=== PATIENT | female | born 1965 | race Caucasian/White ===

== ENCOUNTER 2019-06-14 09:55 | Outpatient (CLI) | payer OTHER, SELFPAY ==
[2019-06-14 11:26] LABS: Anion Gap 11.8 mmol/L (3-11); BUN 11 mg/dL (7-18); CO2 25.2 mmol/L (21.0-32.0); CREATININE 0.73 mg/dL (0.55-1.02); Calcium 9.1 mg/dL (8.5-10.1); Chloride 98 mmol/L (98-107); Cholesterol 226 mg/dL (50-200); Glucose 90 mg/dL (70-100); HDL Cholesterol 58 mg/dL (40-60); Potassium 4.3 mmol/L (3.5-5.1); Sodium 135 mmol/L (136-145); Triglyceride 506 mg/dL (30-150)
[2019-06-14 11:48] LABS: LDL CHOLESTEROL 90 mg/dL (<100)
== END 2019-06-14 10:15 ==
PROVIDERS: PCP Family Medicine; Visit Provider Family Medicine
DX: Z00.00 Encounter for general adult medical examination without abnormal findings (principal); Z13.220 Encounter for screening for lipoid disorders; Z13.228 Encounter for screening for other metabolic disorders
CPT/HCPCS: 36415; 80048; 80061; 83721

== ENCOUNTER 2019-06-21 15:45 | Outpatient (REF) | payer OTHER, SELFPAY ==
--- NOTE | 2019-06-21 15:45 | PAPFT_PTH ---
PATIENT: Isabel Adhikari LOC: [facility] U#:[id number] AGE/SX: 53/F ROOM: RE06/21/[address]: Arlin Chaney V : 1965 BED: DIS: 06/21/2019 SPEC #: [id number] RECD: 06/22/19 12:48 STATUS: NASH REQ #: [id number] RONY: 06/21/19 15:[address]: Arlin Chaney V DEPT: [facility] Cytology RECD BY: Rosalina Sahni Tissues: 1 - CX/ENDOCX FOR PAP SMEARS Procedures: PAP THIN PREP/[facility] Screening HPV DNA PROBE Comments: [id number]
== END 2019-06-21 16:05 ==
LOC: NCHCN 15:45
PROVIDERS: PCP Family Medicine; Visit Provider Family Medicine
DX: Z12.4 Encounter for screening for malignant neoplasm of cervix (principal); Z11.51 Encounter for screening for human papillomavirus (HPV); Z01.419 Encounter for gynecological examination (general) (routine) without abnormal findings
CPT/HCPCS: 88142; 87624

== ENCOUNTER 2021-08-05 00:51 | Outpatient (CLI) | payer OTHER, SELFPAY ==
[2021-08-05 09:46] LABS: Anion Gap 12.6 mmol/L (3-11); BUN 9 mg/dL (7-18); CO2 25.4 mmol/L (21.0-32.0); CREATININE 0.9 mg/dL (0.55-1.02); Calcium 9.4 mg/dL (8.5-10.1); Chloride 100 mmol/L (98-107); Glucose 106 mg/dL (74-106); Potassium 3.9 mmol/L (3.5-5.1); Sodium 138 mmol/L (136-145)
[2021-08-05 09:49] LABS: Triglyceride 1063 mg/dL (<150)
[2021-08-05 10:01] LABS: LDL CHOLESTEROL 67 mg/dL (<100)
== END 2021-08-05 00:52 | disposition home or self-care (01) ==
PROVIDERS: PCP Family Medicine; Visit Provider Family Medicine
DX: Z00.00 Encounter for general adult medical examination without abnormal findings (principal); I10 Essential (primary) hypertension
CPT/HCPCS: 36415; 80048; 83721; 84478

== ENCOUNTER 2022-08-18 02:44 | Outpatient (CLI) | payer OTHER, SELFPAY ==
[2022-08-18 07:34] LABS: Hemoglobin A1C 5.5 % (<5.7)
[2022-08-18 08:32] LABS: ALT 35 U/L (14-59); AST 26 U/L (15-37); Albumin 3.6 g/dL (3.4-5.0); Alkaline Phosphatase 66 U/L (46-116); Anion Gap 9.6 mmol/L (3-11); BUN 6 mg/dL (7-18); Bilirubin, Total 0.5 mg/dL (0.2-1.0); CO2 27.4 mmol/L (21.0-32.0); CREATININE 0.7 mg/dL (0.55-1.02); Calcium 9.3 mg/dL (8.5-10.1); Calculated LDL 72 mg/dL (<100); Chloride 99 mmol/L (98-107); Cholesterol 196 mg/dL (<200); Estimated GFR 100.19 (mL/min/1.73m2); Glucose 87 mg/dL (74-106); HDL Cholesterol 60 mg/dL (40-60); Potassium 4.1 mmol/L (3.5-5.1); Sodium 136 mmol/L (136-145); Total Protein 7.2 g/dL (6.4-8.2); Triglyceride 323 mg/dL (<150)
[2022-08-18 08:44] LABS: Lipase 236 U/L (73-393)
== END 2022-08-18 02:45 | disposition home or self-care (01) ==
PROVIDERS: PCP Family Medicine; Visit Provider Family Medicine
DX: E78.1 Pure hyperglyceridemia (principal); I10 Essential (primary) hypertension; Z00.00 Encounter for general adult medical examination without abnormal findings; Z13.1 Encounter for screening for diabetes mellitus
CPT/HCPCS: 36415; 80053; 80061; 83690; 83036

== ENCOUNTER 2023-09-15 02:49 | Outpatient (CLI) | payer OTHER, SELFPAY ==
[2023-09-15 10:41] LABS: ALT 48 U/L (14-59); AST 42 U/L (15-37); Albumin 4.3 g/dL (3.4-5.0); Alkaline Phosphatase 72 U/L (46-116); Anion Gap 13.3 mmol/L (3-11); BUN 6 mg/dL (7-18); Bilirubin, Total 0.6 mg/dL (0.2-1.0); CO2 22.7 mmol/L (21.0-32.0); CREATININE 0.7 mg/dL (0.55-1.02); Calcium 10.1 mg/dL (8.5-10.1); Chloride 99 mmol/L (98-107); Estimated GFR 99.57 (mL/min/1.73m2); Glucose 107 mg/dL (74-106); Lipase 65 U/L (16-77); Potassium 4.2 mmol/L (3.5-5.1); Sodium 135 mmol/L (136-145)
[2023-09-15 11:00] LABS: Triglyceride 434 mg/dL (<150)
[2023-09-15 11:20] LABS: LDL CHOLESTEROL 89 mg/dL (<100)
== END 2023-09-15 02:50 | disposition home or self-care (01) ==
PROVIDERS: PCP Family Medicine; Visit Provider Family Medicine
DX: I10 Essential (primary) hypertension (principal); E78.1 Pure hyperglyceridemia; Z00.00 Encounter for general adult medical examination without abnormal findings
CPT/HCPCS: 36415; 80053; 83690; 83721; 84478

== ENCOUNTER 2024-08-21 16:02 | Outpatient (REF) | payer OTHER, SELFPAY ==
--- NOTE | 2024-08-21 13:30 | PAPFT_PTH ---
PATIENT: Isabel Adhikari LOC: [facility]#:[id number] AGE/SX: 59/F ROOM: RE08/21/[address]: Arlin Chaney V : 1965 BED: DIS: 08/21/2024 SPEC #: [id number] RECD: 08/21/24 18:38 STATUS: NASH REJames #: [id number] RONY: 08/21/24 13:[address]: Arlin Chaney V [facility] Cytology RECD BY: Rosalina Sahni Tissues: 1 - CX/ENDOCX FOR PAP SMEARS Procedures: PAP THIN PREP/[facility] Screening HPV DNA PROBE Comments: [id number] (HPV 16 & 18/45)
== END 2024-08-21 16:03 | disposition home or self-care (01) ==
LOC: NCHCN 16:02
PROVIDERS: PCP Family Medicine; Visit Provider Family Medicine
DX: Z11.51 Encounter for screening for human papillomavirus (HPV) (principal); Z01.419 Encounter for gynecological examination (general) (routine) without abnormal findings
CPT/HCPCS: 88142; 87624